=== PATIENT | female | born 1955 | race Caucasian/White ===

== ENCOUNTER 2020-10-01 13:38 | Emergency (ER) | payer MEDICARE, OTHER ==
[~2020-10-01] VITALS: Ht 165.1 cm; Wt 65.3 kg
[2020-10-01] MEDS ORDERED: POTASSIUM CHLO10 ME1 PO (14:01)
[2020-10-01] MEDS ORDERED: TRAZODONE HCL50 MG PO (14:02)
[2020-10-01] MEDS ORDERED: HYDROCHLOROTH12.5 MG PO (14:02)
[2020-10-01] MEDS ORDERED: LEVOTHYROXINE75 MCG PO (14:02)
[2020-10-01] MEDS ORDERED: CARBIDOPA-LEVO1 EAC1 PO (14:02)
[2020-10-01] MEDS ORDERED: ONDANSETRON ODT8 MG PO (18:31)
== END 2020-10-01 19:19 | disposition home or self-care (01) ==
LOC: ED 13:38
DX: K52.9 Noninfective gastroenteritis and colitis, unspecified (principal); Z20.822 Contact with and (suspected) exposure to COVID-19; G20 Parkinson's disease; Z85.3 Personal history of malignant neoplasm of breast; Z79.899 Other long term (current) drug therapy
CPT/HCPCS: 80053; 81001; 83735; 85025; 96365; 96366; 96368; 96375; 99284-25; C9803; J2405; J3475; J3480; J7030; U0003

== ENCOUNTER 2020-10-26 14:44 | Emergency (ER) | payer MEDICARE, OTHER ==
[~2020-10-26] VITALS: Ht 165.1 cm; Wt 61.2 kg
[~2020-10-26 14:44] MED LIST: CARBIDOPA-LEVO1 EAC1 PO; HYDROCHLOROTH12.5 MG PO; LEVOTHYROXINE75 MCG PO; ONDANSETRON ODT8 MG PO; POTASSIUM CHLO10 ME1 PO; TRAZODONE HCL50 MG PO
--- OUTSIDE RECORDS SUMMARY | 2020-10-26 14:52 | XMS ---
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 Maureen has no Care Guidelines for this patient. Fermin VISIT COUNT (12 MO.) 2 [facility] TOTAL 2 NOTE: Visits indicate total known visits. ED/C VISIT TRACKING (12 MO.) 10/26/2020 14:45 [facility] [place] TYPE: Emergency COMPLAINT: - DIARRHEA, DEHYDRATED, N/V 10/01/2020 13:[address] [facility] [place] TYPE: Emergency COMPLAINT: - N/V, BLOODY STOOL DIAGNOSES: - Personal history of malignant neoplasm of breast - Diarrhea, unspecified - Parkinson's disease - Other halfway (current) drug therapy - Noninfective gastroenteritis and colitis, unspecified INPATIENT VISIT TRACKING (12 MO.) No inpatient visits to display in this time frame [email or web address]
[2020-10-26] MEDS ORDERED: ZOFRAN4 MG PO (22:26)
[2020-10-26] MEDS ORDERED: POTASSIUM CHLO20 ME1 PO (22:26)
== END 2020-10-26 22:40 | disposition home or self-care (01) ==
LOC: ED 14:44
DX: K52.9 Noninfective gastroenteritis and colitis, unspecified (principal); E87.6 Hypokalemia
CPT/HCPCS: 74177; 80053; 81001; 83690; 83735; 85025; 96366; 99285-25; C9803; J3480; J7030; Q9967; U0003

== ENCOUNTER 2020-11-24 07:16 | Day surgery (SDC) | payer MEDICARE, OTHER ==
[~2020-11-24] VITALS: Ht 165.1 cm; Wt 60.0 kg
[~2020-11-24 07:16] MED LIST changes: +BUDESONIDE ER9 MG PO; +CARBIDOPA25 MG PO; +POTASSIUM CHLO20 ME1 PO; +ZOFRAN4 MG PO
--- NOTE | 2020-11-24 10:58 | NUR ---
11/24/20 1058 Lilian,Lara 1041 PT ARRIVED TO PACU ON LEFT SIDE AND VSS. PT WAKES AND IS REORIENTED TO PACU, PT FALLS EASILY BACK TO SLEEP. 1052 PT WAKES AND O2 REMOVED. RN ENCOURAGES PT TO PASS GAS, PT RESTING IN HER SIDE AND VSS.
--- NOTE | 2020-11-24 12:38 | OR ---
[facility] [address] [place], [place] [address] Signed DATE OF OPERATION: 11/24/2020 SURGEON: Luisa Wilson MD PREOPERATIVE DIAGNOSES: 1. Weight loss and recent diagnosis of Parkinson disease. 2. Abdominal pain, right-sided tenderness, CT findings suggestive of right-sided colitis. POSTOPERATIVE DIAGNOSIS: Pancolitis worse right than left. PROCEDURE: Total colonoscopy to cecum with multiple biopsies. ANESTHESIA: Intravenous sedation, fentanyl 150 mcg and Versed 5 mg. INDICATION: This 65-year-old white woman is a patient of BETTIE Ashford and referred for consideration of colonoscopy based on right-sided colitis noted on CT scan. The patient has significant debility. She has diagnosis in August of Parkinson disease. She has been treated with levodopa-carbidopa and had improvement in that regard. She has lost at least 40 pounds since August with poor appetite and some abdominal pain. A CT scan was performed on October 26, 2020 which did show thickening of the right colon consistent with right-sided colitis. She was empirically started on budesonide through the emergency room and though it has helped somewhat, it is not definitive in her improvement. She is admitted at this time to undergo colonoscopy to better characterize the problem highly suspicious of inflammatory bowel disease as the underlying problem. She understands the risks of bleeding, infection, and perforation related to colonoscopy and wished to proceed. FINDINGS: Indeed there was colitis. This extended from the right colon distalward including all of the colon , but most dominantly the right and transverse areas. There were few scattered diverticula. There was no evidence of malignancy. Most likely this represents ulcerative colitis. DESCRIPTION OF PROCEDURE: The patient was brought to surgical endoscopy suite, placed in lateral decubitus position, given intravenous sedation to the point of slurred speech and nystagmus with Electronically Signed By: LUISA WILSON MD 11/24/20 1238 PATIENT NAME: VENUS BARNARD OPERATIVE REPORT DATE OF : 53 REPORT #: [id number] PHYSICIAN: LUISA WILSON MD PCP: CARMEN GREEN REPORT IS CONFIDENTIAL AND NOT TO BE RELEASED WITHOUT AUTHORIZATION [facility] [address] [place], [place] [address] Signed full cardiopulmonary monitoring. Digital rectal examination was normal. An Olympus video colonoscope was passed in the rectum and manipulated showing initially no sign of significant issue. There were diverticula of the sigmoid. The scope was passed beyond this to the transverse colon where increasing inflammation was noted in the right colon rather florid inflammation. This despite the fact she has been on budesonide for a few weeks. Scope was ultimately passed to the cecum. Biopsies were taken of the cecum, ascending colon, transverse colon, left sigmoid and rectal areas. There was no actual polyp noted. She did have an ulcerative type lesion at the splenic flexure, which was biopsied, I suspect mostly representing residual resolving colitis. The scope was removed. The patient was taken to the recovery room in good condition having suffered no complication. CONCLUDING DIAGNOSIS: Colitis, most likely ulcerative colitis. PLAN: We will discontinue the budesonide 9 mg daily and change to prednisone 40 mg daily tapering 10 mg every two weeks. We will initiate mesalamine 800 mg p.o. t.i.d., Flagyl 250 mg p.o. t.i.d. for two weeks, and Prilosec 20 mg p.o. daily. We will review her pathology report and her response to therapy has initiated as an outpatient. MD BENJAMÍN Le/JTL /[id number] cc: BETTIE Ashford Copies: CARMEN GREEN ~ Electronically Signed By: LUISA WILSON MD 11/24/20 1238 PATIENT NAME: VENUS BARNARD OPERATIVE REPORT DATE OF : 53 REPORT #: [id number] PHYSICIAN: LUISA WILSON MD PCP: CARMEN GREEN REPORT IS CONFIDENTIAL AND NOT TO BE RELEASED WITHOUT AUTHORIZATION
--- NOTE | 2020-11-25 14:10 | PATH ---
[facility] [address] [place], [place] [address] Signed SPECIMEN(S): A TRANSVERSE COLON BIOPSY SPECIMEN(S): B CECUM BIOPSY SPECIMEN(S): C RIGHT COLON BIOPSY SPECIMEN(S): D HEPATIC FLEXURE BIOPSY SPECIMEN(S): E COLON BIOPSY AT 35 CM SPECIMEN(S): F SIGMOID COLON BIOPSY SPECIMEN(S): G RECTAL BIOPSY SPECIMEN SOURCE: A. TRANSVERSE COLON BIOPSY B. CECUM BIOPSY C. RIGHT COLON BIOPSY D. HEPATIC FLEXURE BIOPSY E. COLON BIOPSY AT 35 CM F. SIGMOID COLON BIOPSY G. RECTAL BIOPSY CLINICAL HISTORY: Chronic diarrhea / palmer colitis; "diverticuli". MICROSCOPIC DESCRIPTION: Histologic sections of all submitted blocks are examined by light microscopy. These findings, together with the gross examination, support the pathologic diagnosis. FINAL PATHOLOGIC DIAGNOSIS: A. Colon, transverse, biopsy: - Colonic mucosa with chronic focally active colitis. B. Cecum, biopsy: - Colonic mucosa with chronic focally active colitis. C. Colon, right, biopsy: - Colonic mucosa with chronic focally active colitis. D. Colon, hepatic flexure, biopsy: - Colonic mucosa with chronic inactive colitis. E. Colon, 35 cm, biopsy: - Colonic mucosa with chronic inactive colitis. F. Colon, sigmoid, biopsy: - Colonic mucosa with chronic active colitis. G. Rectum, biopsy: - Colonic mucosa with chronic active colitis. COMMENT: PATIENT NAME: VENUS BARNARD PATHOLOGY DATE OF : 53 REPORT #: [id number] PHYSICIAN: KARINA PERAZA PCP: CARMEN GREEN REPORT IS CONFIDENTIAL AND NOT TO BE RELEASED WITHOUT AUTHORIZATION [facility] [address] [place], [place] [address] Signed For parts A through G, no dysplasia, granulomas, viral cytopathic change, or microorganisms are seen. These findings are nonspecific and may be seen in association with certain infections, medication-associated colitides, radiation colitis, and inflammatory bowel disease. In particular, the presence of increased apoptotic epithelial cells in the deep mucosa and focal intraepithelial lymphocytes may suggest a medication-associated injury. Correlation with clinical and endoscopic information, including medication history, is needed. BRP:bg:C2NR GROSS DESCRIPTION: Seven specimens are received in seven containers, labeled "CR." A. The specimen, labeled "CR, transverse colon biopsy," is received in formalin and consists of two gill soft tissue fragment(s) that measure 0.1-0.2 cm in greatest dimension. The specimen is entirely submitted in cassette (A1). B. The specimen, labeled "CR, cecum biopsy," is received in formalin and consists of four gill soft tissue fragment(s) that measure 0.1-0.2 cm in greatest dimension. The specimen is entirely submitted in cassette (B1). C. The specimen, labeled "CR, right colon biopsy," is received in formalin and consists of two gill soft tissue fragment(s) that measure 0.1-0.2 cm in greatest dimension. The specimen is entirely submitted in cassette (C1). D. The specimen, labeled "CR, hepatic flexure biopsy," is received in formalin and consists of two gill soft tissue fragment(s) that measure 0.2 cm in greatest dimension. The specimen is entirely submitted in cassette (D1). E. The specimen, labeled "CR, colon biopsy at 35 cm," is received in formalin and consists of one gill soft tissue fragment(s) that measure 0.1 cm in greatest dimension. The specimen is entirely submitted in cassette (E1). F. The specimen, labeled "CR, sigmoid colon biopsy," is received in formalin and consists of two gill soft tissue fragment(s) that measure 0.1-0.2 cm in greatest dimension. The specimen is entirely submitted in cassette (F1). G. The specimen, labeled "CR, rectal biopsy," is received in formalin and consists of two gill soft tissue fragment(s) that measure 0.1 cm in greatest dimension. The specimen is entirely submitted in cassette (G1). JS (under the direct supervision of a pathologist) PATIENT NAME: VENUS BARNARD PATHOLOGY DATE OF : 53 REPORT #: [id number] PHYSICIAN: KARINA PERAZA PCP: CARMEN GREEN REPORT IS CONFIDENTIAL AND NOT TO BE RELEASED WITHOUT AUTHORIZATION [facility] [address] [place], [place] [address] Signed The Gross Description was prepared using a voice recognition system. The report was reviewed for accuracy; however, sound-alike word errors, addition and/or deletions may occur. If there is any question about this report, please contact Client Services. PERFORMING LABORATORY: The technical component was performed by [facility] [address] [place] [id number] (Dormitory Keeper: Bibiana Ochoa MD; CLIA# [id number]). Professional interpretation was performed by [facility], [address] [address] (CLIA# [id number]). Diagnostician: Jose Shelton MD Pathologist Electronically Signed 11/25/2020 Copies: ~ PATIENT NAME: VENUS BARNARD PATHOLOGY DATE OF : 53 REPORT #: [id number] PHYSICIAN: KARINA PATHOLOGY PCP: CARMEN GREEN REPORT IS CONFIDENTIAL AND NOT TO BE RELEASED WITHOUT AUTHORIZATION
== END 2020-11-24 11:53 | disposition home or self-care (01) ==
LOC: DS 07:16
PROVIDERS: ATTEND Surgery
PROC: 0DBL8ZZ Excision of Transverse Colon, Via Natural or Artificial Opening Endoscopic (ICD-10-PCS; 2020-11-24)
PROC: 0DBH8ZZ Excision of Cecum, Via Natural or Artificial Opening Endoscopic (ICD-10-PCS; 2020-11-24)
PROC: 0DBK8ZZ Excision of Ascending Colon, Via Natural or Artificial Opening Endoscopic (ICD-10-PCS; principal; 2020-11-24 08:15)
DX: K52.9 Noninfective gastroenteritis and colitis, unspecified (principal); K57.30 Diverticulosis of large intestine without perforation or abscess without bleeding; G20 Parkinson's disease; E03.9 Hypothyroidism, unspecified; R63.4 Abnormal weight loss; Z85.3 Personal history of malignant neoplasm of breast; Z68.21 Body mass index [BMI] 21.0-21.9, adult
CPT/HCPCS: J0690; J2250; J3010

== ENCOUNTER 2021-04-15 09:40 | Day surgery (SDC) | payer MEDICARE, OTHER ==
[~2021-04-15] VITALS: Ht 165.1 cm; Wt 68.2 kg
--- NOTE | ~2021-04-15 | OR ---
[facility] [address] [place], [place] [address] Draft DATE OF OPERATION: 04/15/2021 SURGEON: Luisa Wilson MD PREOPERATIVE DIAGNOSIS: History of pancolitis on colonoscopy November 2020. POSTOPERATIVE DIAGNOSES: 1. Chronic pancolitis. No evidence of active inflammation. 2. Scattered pseudopolyps. 3. Minimal diverticular change. PROCEDURE: 1. Total colonoscopy to the cecum with cold morcellation, excision of probable pseudopolyps right colon. 2. Random biopsies including cecum, right colon, transverse colon, left colon, sigmoid and rectum. ANESTHESIA: Intravenous sedation; fentanyl 150 mcg and Versed 5 mg. INDICATION: This 66-year-old white woman is a patient of BETTIE Ashford. She underwent colonoscopy by me in November of 2020, where she was found to have pancolitis most consistent with ulcerative colitis. Biopsies confirmed colitis but not otherwise specified and some suggestion of possible nonspecific colitis related to medication or radiation, although inflammatory bowel disease was not ruled out. Clinically, it appeared to be ulcerative colitis. She was treated with prednisone and concurrent mesalamine and now is on mesalamine 800 mg p.o. t.i.d. She has complete resolution of her symptoms with no diarrhea, blood per rectum or other issue. It is notable that she has had lifelong colitis though did not necessarily carry a diagnosis of colitis proper. She is admitted at this time to undergo colonoscopy, now nearly four months later to assess the activity of disease and possibly better characterize the actual subtype of colitis that she has. The risk of bleeding, infection, and perforation related to colonoscopy was reviewed with her. She understands and wished to proceed. FINDINGS: Indeed there was pancolitis, but it was chronic. There was no sign of active colitis. There were a few scattered pseudodiverticula and a few scattered pseudopolyps. There were no findings worrisome. Biopsies were taken throughout. PATIENT NAME: VENUS BARNARD OPERATIVE REPORT DATE OF : 53 REPORT #: [id number] PHYSICIAN: LUISA WILSON MD PCP: CARMEN GREEN REPORT IS CONFIDENTIAL AND NOT TO BE RELEASED WITHOUT AUTHORIZATION [facility] [address] [place], [place] [address] Draft DESCRIPTION OF PROCEDURE: The patient was brought to the surgical endoscopy suite and placed in the lateral decubitus position, given intravenous sedation to the point of slurred speech and nystagmus with full cardiopulmonary monitoring. Digital rectal examination was normal. An Olympus video colonoscope was passed in the rectum and manipulated throughout the colon noting findings consistent with chronic colitis, but no active colitis, no ulceration, no bleeding. The scope was ultimately passed to the cecum. In the right colon, there were two juxtaposed pseudopolyps excised with cold morcellation technique. Once the cecum was obtained, biopsies were taken of the cecum as well as the right colon, transverse, left, sigmoid and rectum upon withdrawal of the scope. There were no adenomatous type polyps. No signs of cancer. No active colitis or other issues. There was no stricture. Retroflexed view was normal as well. The scope was removed and the patient was taken to the recovery room in good condition. CONCLUDING DIAGNOSIS: Chronic colitis, much improved compared to November colonoscopy. PLAN: Recommend continued use of mesalamine 800 mg p.o. t.i.d. She will return to see me in approximately 4 to 6 weeks and review pathology and a plan of action going forward. MD BENJAMÍN Le/JORDEN /[id number] cc: BETTIE Ashford Copies: CARMEN GREEN ~ PATIENT NAME: VENUS BARNARD OPERATIVE REPORT DATE OF : 53 REPORT #: [id number] PHYSICIAN: LUISA WILSON MD PCP: CARMEN GREEN REPORT IS CONFIDENTIAL AND NOT TO BE RELEASED WITHOUT AUTHORIZATION
[~2021-04-15 09:40] MED LIST changes: +MESALAMINE800 MG PO; +METRONIDAZOLE250 MG PO; +OMEPRAZOLE20 MG PO; +PREDNISONE20 MG PO
[2021-04-15] MEDS ORDERED: VITAMIN D350 MC3 PO (09:59)
[2021-04-15] MEDS ORDERED: VITAMIN C500 M4 PO (09:59)
--- NOTE | 2021-04-15 11:14 | NUR ---
04/15/21 1114 Jessie Wisdom 1110 PATIENT AWAKE OFF/ON, BUT DROWSY. DENIES PAIN OR NAUSEA. RESP EVEN AND UNLABORED, NC AT 2 LITERS, TURNED OFF ON ARRIVAL TO PACU.
--- NOTE | 2021-04-20 16:28 | PATH ---
[facility] [address] [place], [place] [address] Signed SPECIMEN(S): A ASCENDING/RIGHT COLON POLYP SPECIMEN(S): B CECUM BIOPSY SPECIMEN(S): C ASCENDING/RIGHT COLON BIOPSY SPECIMEN(S): D TRANSVERSE COLON BIOPSY SPECIMEN(S): E DESCENDING/LEFT COLON BIOPSY SPECIMEN(S): F SIGMOID COLON BIOPSY SPECIMEN(S): G RECTAL BIOPSY SPECIMEN SOURCE: A. ASCENDING/RIGHT COLON POLYP B. CECUM BIOPSY C. ASCENDING/RIGHT COLON BIOPSY D. TRANSVERSE COLON BIOPSY E. DESCENDING/LEFT COLON BIOPSY F. SIGMOID COLON BIOPSY G. RECTAL BIOPSY CLINICAL HISTORY: Colonoscopy. Preop: History of pancolitis. Postop: Chronic colitis. FINAL PATHOLOGIC DIAGNOSIS: A. Colon, ascending/right, polyp, polypectomy: - Tubular adenoma. - Negative for high-grade dysplasia or malignancy. B. Colon, cecum, biopsy: - Colonic mucosa with features of quiescent colitis. - Negative for active colitis. - Negative for granulomas, dysplasia, or malignancy. C. Colon, ascending/right, biopsy: - Mild chronic, focally active colitis. - Negative for granulomas, dysplasia, or malignancy. D. Colon, transverse, biopsy: - Mild chronic, focally active colitis. - Negative for dysplasia or malignancy. E. Colon, descending/left, biopsy: - Colonic mucosa with features of quiescent colitis. - Negative for active colitis. - Negative for granulomas, dysplasia, or malignancy. F. Colon, sigmoid, biopsy: - Colonic mucosa with features of quiescent colitis. - Negative for active colitis. PATIENT NAME: VENUS BARNARD PATHOLOGY DATE OF : 53 REPORT #: [id number] PHYSICIAN: KARINA PERAZA PCP: CARMEN GREEN REPORT IS CONFIDENTIAL AND NOT TO BE RELEASED WITHOUT AUTHORIZATION [facility] [address] [place], [place] [address] Signed - Negative for granulomas, dysplasia, or malignancy. G. Rectum, biopsy: - Colorectal mucosa with features of quiescent colitis. - Negative for active colitis. - Negative for granulomas, dysplasia, or malignancy. COMMENT: Overall, the histologic changes are improved from the previous biopsy (11/24/20, [id number]). Regarding specimen D: A focal granuloma is seen in association with a ruptured crypt. A portion of this case was reviewed in consultation with another member of our pathology staff with subspecialty training in gastrointestinal pathology. NAL:cml:C2NR MICROSCOPIC EXAMINATION: Histologic sections of all submitted blocks are examined by light microscopy. These findings, together with the gross examination, support the pathologic diagnosis. GROSS DESCRIPTION: Seven specimens are received in seven containers labeled with "CR." A. The specimen, labeled "CR, 1," and designated on the requisition "ascending polypectomy," is received in formalin and consists of one fragment of pink-gill tissue (0.4 cm in greatest dimension). The specimen is submitted entirely in cassette (A1). B. The specimen, labeled "CR, 2," and designated on the requisition "cecum biopsy," is received in formalin and consists of two fragments of pink-gill tissue (0.2-0.5 cm in greatest dimension). The specimen is submitted entirely in cassette (B1). C. The specimen, labeled "CR, 3," and designated on the requisition "ascending/right biopsy," is received in formalin and consists of three fragments of pink-gill tissue (0.1-0.3 cm in greatest dimension). The specimen is submitted entirely in cassette (C1). D. The specimen, labeled "CR, 4," and designated on the requisition "transverse biopsy," is received in formalin and consists of one fragment of pink-gill tissue (0.2 cm in greatest dimension). The specimen is submitted entirely in cassette (D1). E. The specimen, labeled "CR, 5," and designated on the requisition "descending/left biopsy," is received in formalin and consists of two fragments PATIENT NAME: VENUS BARNARD PATHOLOGY DATE OF : 53 REPORT #: [id number] PHYSICIAN: KARINA PERAZA PCP: CARMEN GREEN REPORT IS CONFIDENTIAL AND NOT TO BE RELEASED WITHOUT AUTHORIZATION [facility] [address] [place], [place] [address] Signed of red-pink tissue (0.3 cm in greatest dimension). The specimen is submitted entirely in cassette (E1). F. The specimen, labeled "CR, 6," and designated on the requisition "sigmoid biopsy," is received in formalin and consists of three fragments of pink-gill tissue (0.1-0.3 cm in greatest dimension). The specimen is submitted entirely in cassette (F1). G. The specimen, labeled "CR, 7," and designated on the requisition "rectum biopsy," is received in formalin and consists of two fragments of pink-gill tissue (0.2 cm in greatest dimension). The specimen is submitted entirely in cassette (G1). AC (under the direct supervision of a pathologist) The Gross Description was prepared using a voice recognition system. The report was reviewed for accuracy; however, sound-alike word errors, addition and/or deletions may occur. If there is any question about this report, please contact Client Services. PERFORMING LABORATORY: The technical component was performed by [facility], [address] [place] [address] (Animal Care Provider: Bibiana Ochoa MD; CLIA# [id number]). Professional interpretation was performed by [facility] [address] (CLIA# [id number]). Diagnostician: Negin Campos MD Pathologist Electronically Signed 04/20/2021 Copies: ~ PATIENT NAME: VENUS BARNARD PATHOLOGY DATE OF : 53 REPORT #: [id number] PHYSICIAN: KARINA PERAZA PCP: CARMEN GREEN REPORT IS CONFIDENTIAL AND NOT TO BE RELEASED WITHOUT AUTHORIZATION
== END 2021-04-15 11:55 | disposition home or self-care (01) ==
LOC: OPS 09:40 → DS 09:44 → OPS 11:00 → DS 14:00
PROVIDERS: ATTEND Surgery
PROC: 0DBE8ZZ Excision of Large Intestine, Via Natural or Artificial Opening Endoscopic (ICD-10-PCS; principal; 2021-04-15 11:00)
DX: K52.9 Noninfective gastroenteritis and colitis, unspecified (principal); D12.2 Benign neoplasm of ascending colon; Z85.3 Personal history of malignant neoplasm of breast
CPT/HCPCS: 99153; G0500; J0690; J2250; J3010; J7121